=== PATIENT | male | born 1930 | race Caucasian/White ===

== ENCOUNTER → 2020-03-28 | Outpatient (CLI) | payer OTHER ==
[~2020-03-28] MED LIST: ASPIR 8181 MG PO; DITROPAN XL10 M1 PO; FLOMAX0.4 MG PO; IBUPROFEN 200200 M1 PO; LEVOTHYROXINE0.05 MG PO; OMEPRAZOLE20 M2 PO; PRAVACHOL40 MG PO; VITAMIN D-32000 UNIT PO
== END ==
LOC: SJCVCIMAG 09:58
DX: I25.10 Atherosclerotic heart disease of native coronary artery without angina pectoris (principal); I10 Essential (primary) hypertension; I65.23 Occlusion and stenosis of bilateral carotid arteries; E78.5 Hyperlipidemia, unspecified; I73.00 Raynaud's syndrome without gangrene